=== PATIENT | female | born 1970 | race Caucasian/White ===

== ENCOUNTER → 2018-01-19 | Outpatient (CLI) | payer BC ==
--- NOTE | 2018-01-19 12:23 | RAD ---
Examination: Ultrasound pelvis HISTORY: History of menorrhagia COMPARISON: None available FINDINGS: The uterus measures 9.5 x 5.9 X 4.3 cm. The endometrium measures 1.7 cm in thickness with vascular flow.. The right ovary measures 2.8 x 1.6 x 2.9 cm. In the right ovary, there is a 1.2 cm cystic structure with echogenicity within could be a collapsed follicle or a hemorrhagic cyst. The left ovary measures 2.0 x 1.8 x 1.6 cm There is a 1.7 cm heterogeneous echogenicity identified in the uterus just abutting the endometrium likely a fibroid. Few nabothian cysts identified in the cervix. Simple appearing free fluid identified in the pelvis IMPRESSION: 1. A 1.2 cm cystic structure with echogenicity within identified in the right ovary probably a collapsed follicle or a hemorrhagic cyst. 2. A 1.7 cm heterogeneous echogenicity identified in the uterus just abutting the endometrium likely a fibroid. 3. Prominent appearing endometrium with vascular flow within the endometrium could be secondary to endometrial hyperplasia , dysfunctional uterine bleeding, malignancy is not completely excluded. Electronically signed by: Lauri Tolentino MD (01/19/2018 12:20 PM) [place] [id number]
== END | disposition home or self-care (01) ==
LOC: US 10:37
DX: N92.0 Excessive and frequent menstruation with regular cycle (principal)
CPT/HCPCS: 76830; 76856